=== PATIENT | male | born 2000 | race Caucasian/White ===

== ENCOUNTER 2023-07-03 09:07 | Outpatient (OUT) | payer OTHER, SELFPAY ==
[2023-07-03 09:26] LABS: Basophils Absolute Auto 0.1 10^3/uL (0.0-0.1); Basophils Percent Auto 1.1 % (0.2-2.0); Eosinophils Absolute Auto 0.1 10^3/uL (0.0-0.7); Eosinophils Percent Auto 2.1 % (0.9-7.0); Hematocrit 45.4 % (42.0-54.0); Hemoglobin 16.1 g/dL (14.0-18.0); Immature Granulocytes Abs Auto 0.01 10^3/uL (0.00-0.03); Immature Granulocytes Pct Auto 0.2 % (0.0-0.5); Lymphocytes Absolute Auto 1.7 10^3/uL (1.2-3.8); Mean Corpuscular HGB Conc 35.5 g/dL (29.9-35.2); Mean Corpuscular Hemoglobin 30.7 pg (25.9-34.0); Mean Corpuscular Volume 86.5 fL (80.0-94.0); Mean Platelet Volume 9.8 fL (9.5-13.5); Monocytes Absolute Auto 0.4 10^3/uL (0.3-0.8); Monocytes Percent Auto 9.6 % (1.7-12.0); Neutrophils Absolute Auto 2.2 10^3/uL (1.4-6.5); Platelet Count 273 10^3/uL (150-450); Red Blood Count 5.25 10^6/uL (4.70-6.10); Red Cell Distribution Width 12.5 % (11.0-15.0); White Blood Count 4.4 10^3/uL (4.0-11.0)
[2023-07-03 12:43] LABS: Estimated Average Glucose 301 mg/dL; Glycohemoglobin A1C 12.1 % (4.5-6.2)
[2023-07-03 13:46] LABS: Alanine Aminotransferase 42 U/L (16-63); Albumin Globulin Ratio 1.5; Albumin Level 4.4 g/dL (3.4-5.0); Alkaline Phosphatase 94 U/L (46-116); Anion Gap 13.6; Aspartate Amino Transferase 20 U/L (15-37); BUN Creatinine Ratio 14.1; Calcium 9.4 mg/dL (8.5-10.1); Carbon Dioxide 30.7 mmol/L (21.0-32.0); Chloride 96 mmol/L (98-107); Chol HDL Ratio 4.9; Cholesterol 259 mg/dL (<=200); Estimated GFR (African America >60 (>=60); Estimated GFR (Non-African Ame >60 (>=60); Free T3 2.11 pg/mL (2.18-3.98); Glucose 326 mg/dL (74-106); HDL Cholesterol 53 mg/dL (40-60); Potassium 4.3 mmol/L (3.5-5.1); Sodium 136 mmol/L (136-145); Total Protein 7.4 g/dL (6.4-8.2); Triglycerides 158 mg/dL (<=150); VLDL CHOLESTEROL 31.6 mg/dL
[2023-07-04 10:11] LABS: Insulin 1.3 uIU/mL (2.6-24.9)
== END 2023-07-03 09:08 | disposition home or self-care (01) ==
LOC: LAB 09:10
PROVIDERS: PCP Family Medicine; Visit Provider Family Medicine
DX: Z00.00 Encounter for general adult medical examination without abnormal findings (principal); R63.4 Abnormal weight loss
CPT/HCPCS: 36415; 80053; 80061; 83036; 83525; 84436; 84443; 84481; 85025

== ENCOUNTER 2023-08-16 08:47 | Outpatient (OUT) | payer OTHER, SELFPAY ==
[2023-08-16 09:53] LABS: Anion Gap 12.2; BUN Creatinine Ratio 21.2; Calcium 8.6 mg/dL (8.5-10.1); Carbon Dioxide 30.1 mmol/L (21.0-32.0); Chloride 105 mmol/L (98-107); Chol HDL Ratio 2.3; Cholesterol 171 mg/dL (<=200); Estimated GFR (African America >60 (>=60); Estimated GFR (Non-African Ame >60 (>=60); Glucose 190 mg/dL (74-106); HDL Cholesterol 73 mg/dL (40-60); Potassium 4.3 mmol/L (3.5-5.1); Sodium 143 mmol/L (136-145); Triglycerides 36 mg/dL (<=150); VLDL CHOLESTEROL 7.2 mg/dL
[2023-08-17 08:11] LABS: C-Peptide, Serum 1.5 ng/mL (1.1-4.4)
== END 2023-08-16 08:48 | disposition home or self-care (01) ==
LOC: LAB 08:48
PROVIDERS: PCP Family Medicine; Visit Provider Internal Medicine
DX: E10.65 Type 1 diabetes mellitus with hyperglycemia (principal); E55.9 Vitamin D deficiency, unspecified
CPT/HCPCS: 36415; 80061; 80069; 82043; 82306; 82570; 84681

== ENCOUNTER 2025-02-05 08:38 | Outpatient (OUT) | payer OTHER, SELFPAY ==
--- OUTSIDE RECORDS SUMMARY | 2025-02-04 13:29 | XMS_ITS | CCD ---
Author Organization [facility] Care Team Providers Care Coffee Blender Name Role Phone DR EDENILSON SHELLEY Attending Unavailable KARSTEN, DR PYLE Consulting Unavailable MISC, DR WARD Primary Care Unavailable KARSTEN, DR PYLE Admitting Unavailable KARSTEN, DR PYLE Attending Unavailable KARSTEN, DR PYLE Consulting Unavailable KARSTEN, DR PYLE Primary Care Unavailable KARSTEN, DR PYLE Admitting Unavailable KARSTEN, DR PYLE Consulting Unavailable KARSTEN, DR PYLE Primary Care Unavailable KARSTEN, DR PYLE Admitting Unavailable KARSTEN, DR PYLE Attending Unavailable Edenilson Shelley MD Primary Care Provider [phone] Edenilson Shelley MD Primary Care Provider [phone] BRITTNEY SONG Attending Unavailable JANICE KIRBY Attending Unavailable BRITTNEY SONG Attending Unavailable BRITTNEY SONG Referring Unavailable BRITTNEY SONG Attending Unavailable Allergies Allergy Classification Reported Allergen(s) Allergy Type Date of Onset Reaction(s) Facility Penicillins (antibiotic) (1 source) Amoxicillin Drug Allergy 3 [facility] Repository (9 sources) Amoxicillin Drug Allergy 4 [facility] (9 sources) Penicillins Propensity to adverse reactions 4 [facility] (2 sources) Amoxicillin-Pot Clavulanate Drug Allergy 5 GI intolerance [facility] Medications Current Medications Medication Drug Class(es) Dates Sig (Normalized) Sig (Original) Blood Glucose Monitoring Suppl (True Metrix Meter) w/Device kit (9 sources) Start: 07-04-2023 Blood Glucose Monitoring Suppl (True Metrix Meter) w/Device kit 07/04/2023 Active Start: 07-04-2023 Blood Glucose Monitoring Suppl (True Metrix Meter) w/Device kit USE DIRECTED to [facility] BLOOD SUGAR TWICE DAILY 07/04/2023 Active cetirizine hydrochloride 10 mg oral tablet (9 sources) Histamine-1 Receptor Antagonist take 1 tablet by mouth once daily cetirizine (ZyrTEC) 10 MG tablet Take 10 mg by mouth Daily Active citalopram 20 mg oral tablet (9 sources) Serotonin Reuptake Inhibitor take 1 tablet by mouth once daily citalopram (CeleXA) 20 MG tablet Take 20 mg by mouth Daily Active empagliflozin 10 mg oral tablet (13 sources) Sodium-Glucose Cotransporter 2 Inhibitor Start: 12-04-19 End: 01-22-20 take 1 tablet by mouth once daily empagliflozin (Jardiance) 10 MG Indications: Type 2 diabetes mellitus with hyperglycemia, with long-term current use of insulin (CMS/HCC) Take 1 tablet (10 mg) by mouth Daily 90 tablet 10/23/2024 01/21/2025 Active 24 hr guanFACINE 2 mg extended release oral tablet (9 sources) Central alpha-2 Adrenergic Agonist take 1 tablet by mouth once daily guanFACINE (Intuniv) 2 mg 24 hr tablet Take 2 mg by mouth Daily Active 3 ml insulin glargine 100 unt/ml pen injector (13 sources) Insulin Analog Start: 10-23-19 insulin glargine (Lantus SoloStar) 100 UNIT/ML pen Indications: Type 2 diabetes mellitus with hyperglycemia, with long-term current use of insulin (CMS/HCC) Inject 35 Units under the skin at bedtime 30 mL 1 10/23/2024 Active Start: 10-06-2024 End: 10-23-2024 Lantus SoloStar 100 UNIT/ML pen Indications: Type 2 diabetes mellitus with hyperglycemia, with long-term current use of insulin (CMS/HCC) INJECT 30 UNITS SUBCUTANEOUSLY AT BEDTIME 30 mL 1 10/06/2024 10/23/2024 Discontinued (Reorder) Start: 12-18-2023 End: 09-14-2024 insulin glargine (Lantus Veena oStar) 100 UNIT/ML pen Indications: Type 2 diabetes mellitus with hyperglycemia, with long-term current use of insulin (CMS/HCC) Inject 30 Units under the skin at bedtime 27 mL 06/16/2024 09/14/2024 Active 3 ml insulin lispro 100 unt/ml pen injector (9 sources) Insulin Analog Start: 07-29-2023 End: 01-07-2025 HumaLOG KWIKPEN 100 UNIT/ML injection Inject 6 Units under the skin in the morning and 6 Units at noon and 6 Units in the evening. Inject with meals. 07/29/2023 01/07/2025 Discontinued (Therapy completed) lisdexamfetamine dimesylate 70 mg oral capsule (9 sources) Central Nervous System Stimulant take 1 capsule by mouth in the morning lisdexamfetamine (Vyvanse) 70 MG capsule Take 70 mg by mouth in the morning. Active melatonin 3 mg / vitamin b6 2 mg oral tablet (9 sources) take 1 tablet by mouth once daily Melatonin 3-2 MG tablet Take 3 mg by mouth Daily Active metFORMIN hydrochloride 1000 mg oral tablet (16 sources) Biguanide Start: 11-05-2024 take 1 tablet by mouth twice daily at mealtime metFORMIN (Glucophage) 1000 MG tablet Indications: Type 2 diabetes mellitus with hyperglycemia (CMS/HCC) TAKE 1 TABLET BY MOUTH TWICE DAILY WITH MEALS 180 tablet 1 11/05/2024 Active Start: 12-04-2023 End: 01-21-2025 take 2 tablets by mouth in the morning metFORMIN (Glucophage) 500 MG tablet Indications: Type 2 diabetes mellitus with hyperglycemia, with long-term current use of insulin (CMS/HCC) Take 2 tablets (1,000 mg) by mouth in the morning and 2 tablets (1,000 mg) in the evening. Take with meals. 360 tablet 10/23/2024 01/21/2025 Active Start: 12-04-2023 take 1 tablet by brianna th in the morning metFORMIN (Glucophage) 500 MG tablet Take 500 mg by mouth in the morning and 500 mg in the evening. Take with meals. 12/04/2023 Active pantoprazole 40 mg delayed release oral tablet (9 sources) Proton Pump Inhibitor take 1 tablet by mouth before mealtime pantoprazole (ProtoNix) 40 MG EC tablet Take 40 mg by mouth in the morning. Take before meals. Do not crush, chew, or split. Active Problems Active Problems Problem Classification Problem Date Documented Date Episodic/Chronic Administrative/social admission (4 sources) Patient encounter status; Translations: [Dietary counseling and surveillance] 06-16-2024 Episodic Diabetes mellitus with complications (4 sources) Hyperglycemia due to type 2 diabetes mellitus; Translations: [Type 2 diabetes mellitus with hyperglycemia] 06-16-2024 Chronic Mood disorders (2 sources) Major depression, single episode; Translations: [Major depressive disorder, single episode, unspecified] Onset: 01-07-2025 01-07-2025 Chronic Nutritional deficiencies (4 sources) Vitamin D deficiency; Translations: [Vitamin D deficiency, unspecified] 06-16-2024 Chronic Other nutritional; endocrine; and metabolic disorders (4 sources) Weight increased; Translations: [Abnormal weight gain] 06-16-2024 Episodic Otitis media and related conditions (11 sources) Perforation of right tympanic membrane; Translations: [Unspecified perforation of tympanic membrane, right ear] Onset: 12-31-2023 12-31-2023 Episodic Unclassified (2 sources) CONTACT W/AND (SUSP) EXPOS COVID-19; Translations: [CONTACT W/AND (SUSP) EXPOS COVID-19] Onset: 10-14-2020 Viral infection (1 source) COVID-19; Translations: [COVID-19] Onset: 10-14-2020 Past or Other Problems Problem Classification Problem Date Documented Da te Episodic/Chronic Immunizations and screening for infectious disease (4 sources) Contact with and (suspected) exposure to other viral communicable diseases; Translations: [CONTCT EXPS OTH VIRL COMMUNICABL DZ] Onset: 07-14-2020 Episodic Other ear and sense organ disorders (9 sources) Impacted cerumen in right ear; Translations: [Impacted cerumen, right ear] Onset: 12-31-2023 12-31-2023 Episodic Other upper respiratory infections (1 source) Acute recurrent frontal sinusitis; Translations: [ACUTE RECURRENT FRONTAL SINUSITIS] Onset: 07-19-2020 Episodic Unclassified (1 source) CONTACT W/AND (SUSP) EXPOS COVID-19; Translations: [CONTACT W/AND (SUSP) EXPOS COVID-19] Onset: 10-12-2020 Results Test Name Value Interpretation Reference Range Facil ity Glucose (Bld) [Mass/Vol]on 0 10-23-2024 Glucose Blood, POC 147 mg/dL [facility] and Cell countson 10-23-2024 HbA1c (Bld) [Mass fraction] 8.1 % [facility] No Panel Informationon 10-23 Interpretation and review of laboratory results Abnormal [facility] Glucose (Bld) [Mass/Vol]Orde red By: Destiny Glory on 06-16-2024 Glucose Blood, POC 145 mg/dL [facility] HbA1c (Bld) [Mass fraction]O rdered By: Yoana Patterson on 06-16-2024 Interpretation and review of laboratory results Normal [facility] Laboratory - Hematology and Cell countsOrdered By: Yoana Patterson on 06-16-2024 HbA1c (Bld) [Mass fraction] 7.9 % [facility] Covid-19 PCR (CVDTBH)on EUA Statement SEE BELOW Normal [facility] Comment on above: Result Comment: This test is not yet approved or cleared by the [place] FDA. When there are no FDA-approved or cleared tests available, and other criteria are met, FDA can make tests available under an emergency access mechanism called an Emergency Use Authorization (EUA). The EUA for this test is supported by the [place] Health and Human Service?s (HHS?s) declaration that circumstances exist to justify the emergency use of in vitro diagnostics for the detection and/or diagnosis of the virus that causes COVID-19. This EUA will remain in effect (meaning this test can be used) for the duration of the COVID-19 declaration justifying emergency of IVDs, unless it is terminated or revoked by FDA (after which the test may no longer be used). When diagnostic testing is negative, the possibility of a false negative should be considered in the context of a patients recent exposures and the presence of clinical signs and symptoms consistent with SARS-CoV-2. Performed By: #### [facility] #### [facility] [address] [address] Chadrivka Jackson SARS-CoV-2 (COVID-19) RNA GENEVIEVE+probe Ql (Unsp spec) Detected Abnormal NOT DETECTED [facility] Comment on above: Result Comment: This test is not yet approved or cleared by the [place] FDA. When there are no FDA-approved or cleared tests available, and other criteria are met, FDA can make tests available under an emergency access mechanism called an Emergency Use Authorization (EUA). The EUA for this test is supported by the [place] Health and Human Service's (HHS's) declaration that circumstances exist to justify the emergency use of in vitro diagnostics for the detection and/or diagnosis of the virus that causes COVID-19. This EUA will remain in effect (meaning this test can be used) for the duration of the COVID-19 declaration justifying emergency of IVDs, unless it is terminated or revoked by FDA (after which the test may no longer be used). Performed By: #### C VDTBH #### [facility] [address] [place] [address] Chad Jackson COVID-19 PCRon 07-16-2020 SARS-CoV-2 (COVID-19) RNA GENEVIEVE+probe Ql (Unsp spec) Not detected Normal Not Detected [facility] Comment on above: Result Comment: This nucleic acid amplification test was developed and its performance characteristics determined by [employer] Nucleic acid amplification tests include PCR and TMA. This test has not been FDA cleared or approved. This test has been authorized by FDA under an Emergency Use Authorization (EUA). This test is only authorized for the duration of time the declaration that circumstances exist justifying the authorization of the emergency use of in vitro diagnostic tests for detection of SARS-CoV-2 virus and/or diagnosis of COVID-19 infection under section 564(b)(1) of the Act, 21 U.S.C. 360bbb-3(b) (1), unless the authorization is terminated or revoked sooner. When diagnostic testing is negative, the possibility of a false negative result should be considered in the context of a patient's recent exposures and the presence of clinical signs and symptoms consistent with COVID-19. An individual without symptoms of COVID-19 and who is not shedding SARS-CoV-2 virus would expect to have a negative (not detected) result in this assay. Performed By: #### C VDPCR #### [facility] [address] [place] [address] Chad Jackson COVID-19 PCRon 06-02-2020 SARS-CoV-2 (COVID-19) RNA GENEVIEVE+probe Ql (Unsp spec) Not detected Normal Not Detected [facility] Comment on above: Result Comment: This nucleic acid amplification test was developed and its performance characteristics determined by [employer] Nucleic acid amplification tests include PCR and TMA. This test has not been FDA cleared or approved. This test has been authorized by FDA under an Emergency Use Authorization (EUA). This test is only authorized for the duration of time the declaration that circumstances exist justifying the authorization of the emergency use of in vitro diagnostic tests for detection of SARS-CoV-2 virus and/or diagnosis of COVID-19 infection under section 564(b)(1) of the Act, 21 U.S.C. 360bbb-3(b) (1), unless the authorization is terminated or revoked sooner. When diagnostic testing is negative, the possibility of a false negative result should be considered in the context of a patient's recent exposures and the presence of clinical signs and symptoms consistent with COVID-19. An individual without symptoms of COVID-19 and who is not shedding SARS-CoV-2 virus would expect to have a negative (not detected) result in this assay. Performed By: #### C VDPCR #### [facility] [address] [place] [address] Vital Signs Date Time Vital Sign Value Performing Clinician Faci lity 01-07-2025 10:230400 Body height 176.5 cm Janice Kirby MD Work Phone: [facility] 01-07-2025 10:23-0400 Body mass index (BMI) [Ratio] 24.02 kg/m2 Janice Kirby MD Work Phone: [facility] 01-07-2025 10:23-0400 Body weight 74.84 kg Janice Kirby MD Work Phone: [facility] 01-07-2025 10:23-0400 Diastolic blood pressure 77 mm[Hg] Janice Kirby MD Work Phone: [facility] 01-07-2025 10:23-0400 Heart rate 121 /min Janice Kirby MD Work Phone: [facility] 01-07-2025 10:23-0400 Systolic blood pressure 129 mm[Hg] Janice Kirby MD Work Phone: [facility] 10-23-2024 09:57-0500 Body height 177.8 cm Brittney Song MD Work Phone: [facility] 10-23-2024 09:57-0500 Body mass index (BMI) [Ratio] 24.25 kg/m2 Brittney Song MD Work Phone: [facility] 10-23-2024 09:57-0500 Body weight 76.66 kg Brittney Song MD Work Phone: [facility] 10-23-2024 09:57-0500 Diastolic blood pressure 70 mm[Hg] Brittney Song MD Work Phone: [facility] 10-23-2024 09:57-0500 Heart rate 105 /min Brittney Song MD Work Phone: [facility] 10-23-2024 09:57-0500 Respiratory rate 16 /min Brittney Song MD Work Phone: [facility] 10-23-2024 09:57-0500 SaO2% (BldA) [Mass fraction] 96 % Brittney Song MD Work Phone: [facility] 10-23-2024 09:57-0500 Systolic blood pressure 110 mm[Hg] Brittney Song MD Work Phone: [facility] 06-16-2024 10:13-0400 Body height 176.5 cm Brittney Song MD Work Phone: [facility] 06-16-2024 10:13-0400 Diastolic blood pressure 74 mm[Hg] Brittney Song MD Work Phone: [facility] 06-16-2024 10:13-0400 Heart rate 98 /min Brittney Song MD Work Phone: [facility] 06-16-2024 10:13-0400 Respiratory rate 18 /min Brittney Song MD Work Phone: [facility] 06-16-2024 10:13-0400 Systolic blood pressure 120 mm[Hg] Brittney Song MD Work Phone: [facility] Encounters Encounter Date Encounter Type Care Provider Facility Start: 01-23-2025 End: 01-23-2025 ambulatory BRITTNEY SONG Not Available Start: 01-07-2025 End: 01-07-2025 Bamshiva Kirby MD Work Phone: [facility] Start: 01-07-2025 End: 01-07-2025 Bamboo flowsalex Kirby MD Work Phone: [facility] Start: 01-07-2025 End: 01-07-2025 ambulatory JANICE KIRBY Not Available Start: 01-07-2025 End: 01-07-2025 Office outpatient visit 15 minutes Janice Kirby MD Work Phone: [facility] Comment on above: Perforation of right tympanic membrane (Primary Dx) Start: 10-23-2024 End: 10-23-2024 Bamboo niranjan Song MD Work Phone: [facility] Start: 10-23-2024 End: 10-23-2024 Bamshiva Song MD Work Phone: [facility] Start: 10-23-2024 End: 10-23-2024 Office outpatient visit 25 minutes Brittney Song MD Work Phone: [facility] Comment on above: Type 2 diabetes aron itus with hyperglycemia, with long-term current use of insulin ([facility]) (Primary Dx); Weight gain; Vitamin D deficiency; Encounter for dietary consultation Start: 10-23-2024 End: 10-23-2024 ambulatory BRITTNEY SONG Not Available Start: 06-16-2024 End: 06-16-2024 Rlboankit Song MD Work Phone: [facility] Start: 06-16-2024 End: 06-16-2024 Bamboo flowsheet Brittney Song MD Work Phone: [facility] Start: 06-16-2024 End: 06-16-2024 Office outpatient visit 25 minutes Brittney Song MD Work Phone: [facility] Comment on above: Type 2 diabetes aron itus with hyperglycemia, with long-term current use of insulin ([facility]) (Primary Dx); Weight gain; Vitamin D deficiency; Encounter for dietary consultation Start: 06-16-2024 End: 06-16-2024 ambulatory BRITTNEY SONG Not Available Start: 10-12-2020 End: 10-12-[address] EDENILSON SHELLEY Facility:[facility] Start: 07-14-2020 End: 07-15-[address] EDENILSON SHELLEY Facility:[facility] Start: 06-01-2020 End: 06-02-[address] EDENILSON SHELLEY Facility:[facility] Procedures Date Procedure Procedure Detail Performing Clinician Start: 10-23-2024 Gluc bld gluc mntr d ev cleared fda spec home use Brittney Song MD Work Phone: Start: 06-16-2024 End: 06-16-2024 Gluc bld gluc mntr dev cleared fda spec home use Brittney Song MD Work Phone: Plan of Treatment Date Care Activity Detail Author Start: 01-06-2026 End: 01-06-2026 Patient encounter procedure 01/06/2026 10:20 AM EDT Office Visit [facility] [address] [facility] [address] [place] [id number] Janice Kirby MD [address] [facility] [address] [place] [address] [facility] Start: 01-23-2025 End: 01-23-2025 Patient encounter procedure 01/23/2025 10:10 AM EDT Office Visit [facility] [address] [place] [phone] Brittney Song MD [address] [place] [address] [facility] Start: 01-07-2025 End: 01-07-2025 Patient encounter procedure 01/07/2025 10:20 AM EDT Office Visit [facility] [address] [place] [address] [place] [address] Janice Kirby MD [address] [place] [address] [place] [address] [facility] Start: 10-23-2024 End: 10-23-2024 Patient encounter procedure 10/23/2024 9:50 AM EST Office Visit [facility] [address] [place] [address] Brittney Song MD [address] [place] [address] Arrived [facility] Comment on above: Arrived Start: 10-20-2024 End: 10-20-2024 Patient encounter procedure 10/20/2024 10:00 AM EST Office Visit [facility] [address] [place] [address] Brittney Song MD [address] [place] [address] [facility] Start: 06-16-2024 End: 06-16-2024 Patient encounter procedure 06/16/2024 10:50 AM EDT Office Visit [facility] [address] [place] [address] Brittney Song MD [address] [place] [address] Type 2 diabetes mellitus with hyperglycemia, with long-term current use of insulin ([facility]) [facility] Comment on above: Type 2 diabetes aron itus with hyperglycemia, with long-term current use of insulin ([facility]) Payers Date Payer Category Payer Medicaid (Managed Care) [employer] [id number] 2002 Unknown [id number] 2002 Unknown [id number] 2002 Unknown [id number] 2002 Unknown [id number] 1259 2002 Unknown [id number] 1259 2002 Unknown [id number] 1259 2002 Unknown [id number] [id number] 1959 Unknown [id number] Social History Date Type Detail Facility Start: 12-26-2023 Tobacco smoking stat [facility] Never smoked tobacco [facility] Start: 12-26-2023 Tobacco use and exposure Smokeless tobacco non-user [facility] Start: 06-05-2024 End: 01-07-2025 Alcoholic beverage intake Lifetime non-drinker (finding) [facility] Start: 12-31-2023 End: 01-07-2025 History of Social function [facility] Start: 12-31-2023 End: 01-07-2025 Tobacco use panel [facility] Start: 2002 Sex assigned at Not on file [facility] NEGATED: Highlighted rowStart: NINF History of tobacco use Passive smoker [facility] History of Present illness Narrative 01-07-2025 Janice Kirby MD - 01/07/2025 10:20 AM EDT Note Date & Type Note Facility 01-07-2025 History of Presen t illness Narrative Subjective Patient ID: Santana Schulte is a 24 y.o. male who presents for Cerumen Impaction (1 year check ears) No ear problems since last seen Family History Problem Relation Name Age of Onset Diabetes Mother Hypertension Mother [place] disease Maternal Grandmother No Known Problems Paternal Grandmother No Known Problems Paternal Grandfather Active Ambulatory Problems Diagnosis Date Noted Right ear impacted cerumen 12/31/2023 Perforation of right tympanic membrane 12/31/2023 Major depressive disorder, single episode, unspecified ([facility]) 01/07/2025 Resolved Ambulatory Problems Diagnosis Date Noted No Resolved Ambulatory Problems Past Medical History: Diagnosis Date ADHD (attention deficit hyperactivity disorder) ([facility]) Anxiety Asthma Diabetes 1.5, managed as type 2 (HCC) ([facility]) IBS (irritable bowel syndrome) watermelon inspector (current) use of insulin ([facility]) Panic attack ([facility]) PTSD (post-traumatic stress disorder) ([facility]) Tympanic membrane perforation, right Vitamin D deficiency, unspecified Past Surgical History: Procedure Laterality Date ADENOIDECTOMY OTHER SURGICAL HISTORY BMT Dr. Balderrama 10/2007 TONSILLECTOMY TYMPANOSTOMY TUBE PLACEMENT BMT x 3 Dr. Crain Allergies Allergen Reactions Amoxicillin Amoxicillin-Pot Clavulanate GI intolerance Penicillins Current Outpatient Medications on File Prior to Visit Medication Sig Dispense Refill Blood Glucose Monitoring Suppl (True Metrix Meter) w/Device kit cetirizine (ZyrTEC) 10 MG tablet Take 10 mg by mouth Daily citalopram (CeleXA) 20 MG tablet Take 20 mg by mouth Daily empagliflozin (Jardiance) 10 MG Take 1 tablet (10 mg) by mouth Daily 90 tablet 0 guanFACINE (Intuniv) 2 mg 24 hr tablet Take 2 mg by mouth Daily insulin glargine (Lantus SoloStar) 100 UNIT/ML pen Inject 35 Units under the skin at bedtime 30 mL 1 lisdexamfetamine (Vyvanse) 70 MG capsule Take 70 mg by mouth in the morning. Melatonin 3-2 MG tablet Take 3 mg by mouth Daily metFORMIN (Glucophage) 1000 MG tablet TAKE 1 TABLET BY MOUTH TWICE DAILY WITH MEALS 180 tablet 1 metFORMIN (Glucophage) 500 MG tablet Take 2 tablets (1,000 mg) by mouth in the morning and 2 tablets (1,000 mg) in the evening. Take with meals. 360 tablet 0 pantoprazole (ProtoNix) 40 MG EC tablet Take 40 mg by mouth in the morning. Take before meals. Do not crush, chew, or split. [DISCONTINUED] HumaLOG KWIKPEN 100 UNIT/ML injection Inject 6 Units under the skin in the morning and 6 Units at noon and 6 Units in the evening. Inject with meals. No current facility-administered medications on file prior to visit. Objective Last Recorded Vitals Vitals: 01/07/25 1023 BP: 129/77 Pulse: (!) 121 ENT Physical Exam Ear Ear Canals: right ear canal normal; left ear canal normal; Tympanic Membranes: left tympanic membrane normal; Ear comments: Punctate clean/dry RT ant/sup perf Assessment/Plan Diagnoses and all orders for this visit: Perforation of right tympanic membrane Stable asymptomatic TM perf. No tx needed documented in this encounter [facility] History of Present illness Narrative 10-23-2024 Brittney Song MD - 10/23/2024 9:50 AM EST Note Date & Type Note Facility 10-23-2024 History of Presen t illness Narrative Images from the original note were not included. Santana Schulte is a 24 y.o. male No ref. provider found presents with chief complaint of Diabetes HPI: Interim history: 10/2024 Followup visit 10/23/2024. Blood sugar in the office 146, A1c 8.1, He is currently on Lantus 30, Metformin 500 twice a day, jardiance 10 mg daily. Interim history: 06/2024 Followup visit 06/16/2024. Blood sugar in the office 145, a1c 7.9, He is currently on Lantus 30, Metformin 500 twice a day, jardiance 10 mg daily. Interim history: 02/2024 Followup visit 02/18/2024. Blood sugar in the office 305, a1c 7.3, He is currently on Lantus 30, Metformin 500 twice a day, jardiance 10 mg daily. Interim history: 11/2023 Followup visit 11/05/2023. Blood sugar in the office 111 He is currently on Lantus 30, Metformin 500 twice a day, jardiance 10 mg daily Interim history: 08/2023. Followup visit 08/23/2023. Blood sugar in the office 249. Labs done. C-peptide 1.5 (1.1-4.9). More type 2 diabetes. Vitamin D 26. Total cholesterol 171, triglycerides 36. LDL 91. He is currently on Lantus 20 and Humalog 6, 8, 10 plus scale #2, on average he takes 60 units daily. Metformin 500 twice a day. HPI: 07/2023 New patient came by himself, by his mom and grandma; they are both my patient. Came and found his diabetes yesterday with A1c 12.1. He almost lost 30 pounds over the last couple months, from 187 to 153 pounds. He is not on any medication for diabetes yet, and he has polyuria, polydipsia, not feeling well. Lab done: Total cholesterol 259, triglycerides 158, HDL 53, LDL 175, TSH normal 2.7, T4 normal 8.4, free T3 mildly low due to his sickness, and insulin low 1.3 (2-24), suggestive of type 1. Blood sugar in our office 532, so we give him Humalog 20 units in the office and I give him sample of Humalog and Levemir to start 20 units at bedtime. SUBJECTIVE: MEDICATIONS: Current Outpatient Medications Medication Instructions Blood Glucose Monitoring Suppl (True Metrix Meter) w/Device kit USE DIRECTED to [facility] BLOOD SUGAR TWICE DAILY cetirizine (ZYRTEC) 10 mg, Daily citalopram (CELEXA) 20 mg, Daily empagliflozin (JARDIANCE) 10 mg, Oral, Daily guanFACINE (INTUNIV) 2 mg, Daily HumaLOG KWIKPEN 6 Units, 3 times daily with meals Lantus SoloStar 35 Units, Subcutaneous, Nightly lisdexamfetamine (VYVANSE) 70 mg, Every morning Melatonin 3-2 MG tablet 3 mg, Daily metFORMIN (GLUCOPHAGE) 1,000 mg, Oral, 2 times daily with meals pantoprazole (PROTONIX) 40 mg, Daily before breakfast ALLERGIES: Allergies Allergen Reactions Amoxicillin Penicillins Past Medical History: Diagnosis Date ADHD (attention deficit hyperactivity disorder) ([facility]/HCC) Anxiety Asthma ([facility]/HCC) Diabetes 1.5, managed as type 2 (HCC) ([facility]) IBS (irritable bowel syndrome) assisted (current) use of insulin ([facility]/HCC) Panic attack ([facility]/HCC) PTSD (post-traumatic stress disorder) ([facility]) Tympanic membrane perforation, right Vitamin D deficiency, unspecified Past Surgical History: Procedure Laterality Date ADENOIDECTOMY OTHER SURGICAL HISTORY BMT Dr. Balderrama 10/2007 TONSILLECTOMY TYMPANOSTOMY TUBE PLACEMENT BMT x 3 Dr[address] Crain REVIEW OF SYMPTOMS: 14 POINT OF SYSTEM REVIEWED AND NEGATIVE OBJECTIVE: Constitutional: Afebrile @ home; no weakness or night sweats SKIN: No change in skin color; no itching, rash or lesions; no hair loss; HEENT: No HAs or injury; no dizziness; No difficulty with vision; no eye pain, discharge or lesions; no hearing loss or difficulty; no nasal discharge, NECK: No pain, limitation of motion, lumps or swollen glands RESP: No cough, wheezing or difficulty breathing. No CP with breathing; CARDIO: No CP , SOB or fatigue, No edema, palpitations or dyspnea with exertion GI: No N/V/D or abd. pain; good appetite with no recent change. No heart burn, liver or gallbladder disease; no rectal bleeding or pain : No urinary pain , frequency or odor. MUSCULOSKELETAL: No muscle pain or cramps; no extremity weakness.No joint pain, stiffness, swelling or limitation of movement NEUROLOGY: No H/O seizures, stroke or fainting. No weakness, tremors. Hematology: No bleeding problems or excessive bruising ENDOCRINE: No increase in hunger, thirst or urination; admits compliance to medical management plan Feet: numbness tingling yes , ulcers or skin break no Lab Results Component Value Date HGBA1C 8.1 10/23/2024 HGBA1C 7.9 06/16/2024 Lab Results Component Value Date GLU 147 10/23/2024 GLU 145 06/16/2024 02/11/2020 12:00 PM 08/18/2020 12:00 PM 02/16/2021 12:00 PM 12/31/2023 1:18 PM 02/18/2024 9:46 AM 06/16/2024 10:13 AM 10/23/2024 9:57 AM Vitals BMI 25.99 kg/m2 27.02 kg/m2 27.02 kg/m2 25.55 kg/m2 25.18 kg/m2 25.18 kg/m2 24.25 kg/m2 BSA (m2) 1.97 m2 2.01 m2 2.01 m2 1.95 m2 1.96 m2 1.96 m2 1.95 m2 Systolic 121 129 146 134 110 120 110 Diastolic 83 87 93 83 60 74 70 Heart Rate 112 98 105 SpO2 97 % 96 % Resp 18 18 16 Height (in) 5' 9 5' 9 5' 9 5' 9 5' 9.5 5' 9.5 5' 10 Weight (lb) 176 183 183 173 173 169 Visit Report Report Report Report ASSESSMENT AND PLAN: Assessment/Plan Diagnoses and all orders for this visit: Type 2 diabetes mellitus with hyperglycemia, with long-term current use of insulin ([facility]) - POCT glycosylated hemoglobin (Hb A1C) docked device - POCT glucose manually resulted - insulin glargine (Lantus SoloStar) 100 UNIT/ML pen; Inject 35 Units under the skin at bedtime - metFORMIN (Glucophage) 500 MG tablet; Take 2 tablets (1,000 mg) by mouth in the morning and 2 tablets (1,000 mg) in the evening. Take with meals. - empagliflozin (Jardiance) 10 MG; Take 1 tablet (10 mg) by mouth Daily We will continue with Lantus 30 units, metformin 1000 twice a day, Jardiance 10 mg. Weight gain Vitamin D deficiency Encounter for dietary consultation Diet and exercise reviewed with the patient Follow up in about 3 months (around 01/20/2025). documented in this encounter [facility] History of Present illness Narrative 06-03-2024 Brittney Song MD - 06/16/2024 10:50 AM EDT Note Date & Type Note Facility 06-03-2024 History of Presen t illness Narrative Santana Schulte is a 24 y.o. male Brittney Song MD presents with chief complaint of Diabetes and Follow-up HPI: Interim history: 06/2024 Followup visit 06/16/2024. Blood sugar in the office 145, a1c 7.9, He is currently on Lantus 30, Metformin 500 twice a day, jardiance 10 mg daily. Interim history: 02/2024 Followup visit 02/18/2024. Blood sugar in the office 305, a1c 7.3, He is currently on Lantus 30, Metformin 500 twice a day, jardiance 10 mg daily. Interim history: 11/2023 Followup visit 11/05/2023. Blood sugar in the office 111 He is currently on Lantus 30, Metformin 500 twice a day, jardiance 10 mg daily Interim history: 08/2023. Followup visit 08/23/2023. Blood sugar in the office 249. Labs done. C-peptide 1.5 (1.1-4.9). More type 2 diabetes. Vitamin D 26. Total cholesterol 171, triglycerides 36. LDL 91. He is currently on Lantus 20 and Humalog 6, 8, 10 plus scale #2, on average he takes 60 units daily. Metformin 500 twice a day. HPI: 07/2023 New patient came by himself, by his mom and grandma; they are both my patient. Came and found his diabetes yesterday with A1c 12.1. He almost lost 30 pounds over the last couple months, from 187 to 153 pounds. He is not on any medication for diabetes yet, and he has polyuria, polydipsia, not feeling well. Lab done: Total cholesterol 259, triglycerides 158, HDL 53, LDL 175, TSH normal 2.7, T4 normal 8.4, free T3 mildly low due to his sickness, and insulin low 1.3 (2-24), suggestive of type 1. Blood sugar in our office 532, so we give him Humalog 20 units in the office and I give him sample of Humalog and Levemir to start 20 units at bedtime. SUBJECTIVE: MEDICATIONS: Current Outpatient Medications Medication Instructions Blood Glucose Monitoring Suppl (True Metrix Meter) w/Device kit USE DIRECTED to [facility] BLOOD SUGAR TWICE DAILY cetirizine (ZYRTEC) 10 mg, Daily citalopram (CELEXA) 20 mg, Daily empagliflozin (JARDIANCE) 10 mg, Oral, Daily guanFACINE (INTUNIV) 2 mg, Daily HumaLOG KWIKPEN 6 Units, 3 times daily with meals Lantus SoloStar 30 Units, Subcutaneous, Nightly lisdexamfetamine (VYVANSE) 70 mg, Every morning Melatonin 3-2 MG tablet 3 mg, Daily metFORMIN (GLUCOPHAGE) 1,000 mg, Oral, 2 times daily with meals pantoprazole (PROTONIX) 40 mg, Daily before breakfast ALLERGIES: Allergies Allergen Reactions Amoxicillin Penicillins Past Medical History: Diagnosis Date ADHD (attention deficit hyperactivity disorder) ([facility]) Anxiety Asthma ([facility]) Diabetes 1.5, managed as type 2 ([facility]) ([facility]) IBS (irritable bowel syndrome) assisted (current) use of insulin ([facility]) Panic attack ([facility]) PTSD (post-traumatic stress disorder) ([facility]) Tympanic membrane perforation, right Vitamin D deficiency, unspecified Past Surgical History: Procedure Laterality Date ADENOIDECTOMY OTHER SURGICAL HISTORY BMT Dr. Balderrama 10/2007 TONSILLECTOMY TYMPANOSTOMY TUBE PLACEMENT BMT x 3 [address] Crain REVIEW OF SYMPTOMS: 14 POINT OF SYSTEM REVIEWED AND NEGATIVE OBJECTIVE: Constitutional: Afebrile @ home; no weakness or night sweats SKIN: No change in skin color; no itching, rash or lesions; no hair loss; HEENT: No HAs or injury; no dizziness; No difficulty with vision; no eye pain, discharge or lesions; no hearing loss or difficulty; no nasal discharge, NECK: No pain, limitation of motion, lumps or swollen glands RESP: No cough, wheezing or difficulty breathing. No CP with breathing; CARDIO: No CP , SOB or fatigue, No edema, palpitations or dyspnea with exertion GI: No N/V/D or abd. pain; good appetite with no recent change. No heart burn, liver or gallbladder disease; no rectal bleeding or pain : No urinary pain , frequency or odor. MUSCULOSKELETAL: No muscle pain or cramps; no extremity weakness.No joint pain, stiffness, swelling or limitation of movement NEUROLOGY: No H/O seizures, stroke or fainting. No weakness, tremors. Hematology: No bleeding problems or excessive bruising ENDOCRINE: No increase in hunger, thirst or urination; admits compliance to medical management plan Feet: numbness tingling , ulcers or skin break Lab Results Component Value Date HGBA1C 7.9 06/16/2024 Lab Results Component Value Date GLU 145 06/16/2024 Visit Vitals BP 120/74 Pulse 98 Resp 18 Ht 5' 9.5 BMI 25.18 kg/m Smoking Status Never BSA 1.96 m ASSESSMENT AND PLAN: Assessment/Plan Diagnoses and all orders for this visit: Type 2 diabetes mellitus with hyperglycemia, with long-term current use of insulin ([facility]) - POCT glucose manually resulted - POCT glycosylated hemoglobin (Hb A1C) docked device We will continue with Lantus 30 units, metformin 1000 twice a day, Jardiance 10 mg Weight gain Vitamin D deficiency Encounter for dietary consultation Diet and exercise reviewed with the patient Follow up in about 4 months (around 10/17/2024). documented in this encounter [facility] Evaluation note Note Date & Type Note Facility Evaluation note Diagnosis Type 2 diabetes mellitus with hyperglycemia, with long-term current use of insulin ([facility])- Primary Weight gain Other symptoms concerning nutrition, metabolism, and development Vitamin D deficiency Encounter for dietary consultation documented in this encounter [facility] Evaluation note Note Date & Type Note Facility Evaluation note Diagnosis Type 2 diabetes mellitus with hyperglycemia, with long-term current use of insulin ([facility])- Primary Weight gain Other symptoms concerning nutrition, metabolism, and development Vitamin D deficiency Encounter for dietary consultation documented in this encounter [facility] Evaluation note Note Date & Type Note Facility Evaluation note Diagnosis Perforation of right tympanic membrane- Primary documented in this encounter [facility] Summary Purpose Family History No Family History Records FoundNo Family History Records Found Advance Directives No Advanced Directives Records FoundNo Advanced Directives Records Found Additional Source Comments (unrecognized sect ion and content) No Status Records FoundNo Status Records Found INFORMATION SOURCE (unrecogn ized section and content) DATE CREATED AUTHOR 03/22/2021 [facility] DATE CREATED AUTHOR AUTHOR'S ORGANIZ ATION 01/29/2025 [facility] EPIC Reason for Visit (unrecogniz ed section and content) Reason Comments Diabetes Follow-up Reason Comments Diabetes Reason Comments Cerumen Impaction 1 year check ears Care Teams (unrecognized sec tion and content) Coffee Blender Relationship Specialty Start Date End Date Edenilson Shelley MD [address] [facility] [place] [address] PCP - General Family Medicine 12/31/23 Coffee Blender Relationship Specialty Start Date End Date Edenilson Shelley MD [address] [facility] [place] [address] PCP - General Family Medicine 12/31/23 Coffee Blender Relationship Specialty Start Date End Date Edenilson Shelley MD [address] [facility] [place] [address] PCP - General Family Medicine 12/31/23 Coffee Blender Relationship Specialty Start Date End Date Edenilson Shelley MD [address] [facility] [place] [address] PCP - General Family Medicine 12/31/23 Coffee Blender Relationship Specialty Start Date End Date Edenilson Shelley MD [address] [facility] [place] [address] PCP - General Family Medicine 01/07/25 Coffee Blender Relationship Specialty Start Date End Date Edenilson Shelley MD [address] [facility] [place] [phone] PCP - General Family Medicine 01/07/25 FOR RECORDS PERTAINING TO PATIENTS WHO ARE OR HAVE BEEN ENROLLED IN A CHEMICAL DEPENDENCY/SUBSTANCEABUSE PROGRAM, SOME INFORMATION MAY BE OMITTED. This clinical summary was aggregated from multiple sources. Caution should be exercised in using it in the provision of clinical care. This summary normalizes information from multiple sources, and as a consequence, information in this document may materially change the coding, format and clinical context of patient data. In addition, data may be omitted in some cases. CLINICAL DECISIONS SHOULD BE BASED ON THE PRIMARY CLINICAL RECORDS. [facility] [employer] [facility]. provides no warranty or guarantee of the accuracy or completeness of information in this document.
--- OUTSIDE RECORDS SUMMARY | 2025-02-05 08:53 | XMS_ITS | CCD ---
Author Organization [facility] Care Team Providers Care Wireless Store Manager Name Role Phone DR EDENILSON SHELLEY Attending [...] Unavailable Edenilson Shelley MD Primary Care Provider [phone] Edenilson Shelley MD Primary Care Provider [phone] BRITTNEY SONG Attending Unavailable JANICE KIRBY Attending Unavailable BRITTNEY SONG Attending Unavailable BRITTNEY SONG Referring Unavailable BRITTNEY SONG Attending Unavailable Allergies Allergy Classification Reported Allergen(s) Allergy Type Date of Onset Reaction(s) Facility Penicillins (antibiotic) (1 source) Amoxicillin Drug Allergy 3 [facility] (9 sources) Amoxicillin Drug Allergy 4 [facility] (9 sources) Penicillins Propensity to adverse reactions 4 [facility] (2 sources) Amoxicillin-Pot Clavulanate Drug Allergy 5 GI intolerance [facility] Medications Current Medications Medication Drug Class(es) Dates Sig (Normalized) Sig (Original) Blood Glucose Monitoring Suppl (True Metrix Meter) w/Device kit (9 sources) Start: 07-04-2023 Blood Glucose Monitoring Suppl (True Metrix Meter) w/Device kit 07/04/2023 Active Start: 07-04-2023 Blood Glucose Monitoring Suppl (True Metrix Meter) w/Device kit USE DIRECTED to [facility] BLOOD SUGAR TWICE DAILY 07/04/2023 Active cetirizine [...] 0 10-23-2024 Glucose Blood, POC 147 mg/dL [facility] - Hematology and Cell countson 10-23-2024 HbA1c (Bld) [Mass fraction] 8.1 % [facility] No Panel Informationon 10-23 Interpretation and review of laboratory results Abnormal [facility] Glucose (Bld) [Mass/Vol]Orde red By: Destiny Glory on 06-16-2024 Glucose Blood, POC 145 mg/dL [facility] HbA1c (Bld) [Mass fraction]O rdered By: Yoana Patterson on 06-16-2024 Interpretation and review of laboratory results Normal [facility] Laboratory - Hematology and Cell countsOrdered By: Yoana Patterson on 06-16-2024 HbA1c (Bld) [Mass fraction] 7.9 % [facility] Covid-19 PCR (CVDTBH)on EUA Statement SEE BELOW Normal [facility] Comment on above: Result Comment: This test is not yet approved or cleared by the [place] FDA. When there are no FDA-approved or cleared tests available, and other criteria are met, FDA can make tests available under an emergency access mechanism called an Emergency Use Authorization (EUA). The EUA for this test is supported by the [place] of Health and Human Service?s (HHS?s) declaration [...] consistent with SARS-CoV-2. Performed By: #### [facility] #### [facility] [address] [address] Chadrivka Jackson SARS-CoV-2 (COVID-19) RNA GENEVIEVE+probe Ql (Unsp spec) Detected Abnormal NOT DETECTED [facility] Comment on above: Result Comment: This test is not yet approved or cleared by the [place] FDA. When there are no FDA-approved or cleared tests available, and other criteria are met, FDA can make tests available under an emergency access mechanism called an Emergency Use Authorization (EUA). The EUA for this test is supported by the [place] of Health and Human Service's (HHS's) declaration [...] used). Performed By: #### C VDTBH #### [facility] [address] [place] [address] Chad Jackson COVID-19 PCRon 07-16-2020 SARS-CoV-2 (COVID-19) RNA GENEVIEVE+probe Ql (Unsp spec) Not detected Normal Not Detected [facility] Comment on above: Result Comment: This nucleic acid amplification test was developed and its performance characteristics determined by [employer]. Nucleic acid amplification tests include PCR and [...] assay. Performed By: #### C VDPCR #### [facility] [address] [place] [address] Chad Jackson COVID-19 PCRon 06-02-2020 SARS-CoV-2 (COVID-19) RNA GENEVIEVE+probe Ql (Unsp spec) Not detected Normal Not Detected [facility] Comment on above: Result Comment: This nucleic acid amplification test was developed and its performance characteristics determined by [employer]. Nucleic acid amplification tests include PCR and [...] assay. Performed By: #### C VDPCR #### [facility] [address] [place] [address] Vital Signs Date Time Vital Sign Value Performing Clinician Faci lity 01-07-2025 10:230400 Body height 176.5 cm Janice Kirby MD Work Phone: [facility] 01-07-2025 10:23-0400 Body mass index (BMI) [Ratio] 24.02 kg/m2 Janice Kirby MD Work Phone: [facility] 01-07-2025 10:23-0400 Body weight 74.84 kg Janice Kirby MD Work Phone: [facility] 01-07-2025 10:23-0400 Diastolic blood pressure 77 mm[Hg] Janice Kirby MD Work Phone: [facility] 01-07-2025 10:23-0400 Heart rate 121 /min Janice Kirby MD Work Phone: [facility] 01-07-2025 10:23-0400 Systolic blood pressure 129 mm[Hg] Janice Kirby MD Work Phone: [facility] 10-23-2024 09:57-0500 Body height 177.8 cm Brittney Song MD Work Phone: [facility] 10-23-2024 09:57-0500 Body mass index (BMI) [Ratio] 24.25 kg/m2 Brittney Song MD Work Phone: [facility] 10-23-2024 09:57-0500 Body weight 76.66 kg Brittney Song MD Work Phone: [facility] 10-23-2024 09:57-0500 Diastolic blood pressure 70 mm[Hg] Brittney Song MD Work Phone: [facility] 10-23-2024 09:57-0500 Heart rate 105 /min Brittney Song MD Work Phone: [facility] 10-23-2024 09:57-0500 Respiratory rate 16 /min Brittney Song MD Work Phone: [facility] 10-23-2024 09:57-0500 SaO2% (BldA) [Mass fraction] 96 % Brittney Song MD Work Phone: [facility] 10-23-2024 09:57-0500 Systolic blood pressure 110 mm[Hg] Brittney Song MD Work Phone: [facility] 06-16-2024 10:13-0400 Body height 176.5 cm Brittney Song MD Work Phone: [facility] 06-16-2024 10:13-0400 Diastolic blood pressure 74 mm[Hg] Brittney Song MD Work Phone: [facility] 06-16-2024 10:13-0400 Heart rate 98 /min Brittney Song MD Work Phone: [facility] 06-16-2024 10:13-0400 Respiratory rate 18 /min Brittney Song MD Work Phone: [facility] 06-16-2024 10:13-0400 Systolic blood pressure 120 mm[Hg] [...] 10-23-2024 Bamboo niranjan Song MD Work Phone: [facility] Start: 10-23-2024 End: 10-23-2024 Bamshiva Song MD Work Phone: [facility] Start: 10-23-2024 End: 10-23-2024 Office outpatient visit 25 minutes Brittney Song MD Work Phone: [facility] Comment on above: Type 2 diabetes aron itus with hyperglycemia, with long-term current use of insulin ([facility]) (Primary Dx); Weight gain; Vitamin D deficiency; Encounter for dietary consultation Start: 10-23-2024 End: 10-23-2024 ambulatory BRITTNEY SONG Not Available Start: 06-16-2024 End: 06-16-2024 Rlboankit Song MD Work Phone: [facility] Start: 06-16-2024 End: 06-16-2024 Bamboo flowsheet Brittney Song MD Work Phone: [facility] Start: 06-16-2024 End: 06-16-2024 Office outpatient visit 25 minutes Brittney Song MD Work Phone: [facility] Comment on above: Type 2 diabetes aron itus with hyperglycemia, with long-term current use of insulin ([facility]) (Primary Dx); Weight gain; Vitamin D deficiency; [...] Visit [facility] [address] [facility] [address] [place] [id number] Janice Kirby MD [address] [facility] [address] [place] [address] [facility] Start: 01-23-2025 End: 01-23-2025 Patient encounter procedure 01/23/2025 10:10 AM EDT Office Visit [facility] [address] [place] [id number] Brittney Song MD [address] [place] [address] [facility] Start: 01-07-2025 End: 01-07-2025 Patient encounter procedure 01/07/2025 10:20 AM EDT Office Visit [facility] [address] [place] [address] [place] [address] Janice Kirby MD [address] [place] [address] [place] [address] [facility] Start: 10-23-2024 End: 10-23-2024 Patient encounter procedure 10/23/2024 9:50 AM EST Office Visit [facility] [address] [place] [address] Brittney Song MD [address] [place] [address] [facility] Comment on above: Arrived Start: 10-20-2024 End: 10-20-2024 Patient encounter procedure 10/20/2024 10:00 AM EST Office Visit [facility] [address] [place] [address] Brittney Song MD [address] [place] [address] [facility] Start: 06-16-2024 End: 06-16-2024 Patient encounter procedure 06/16/2024 10:50 AM EDT Office Visit [facility] [address] [place] [address] Brittney Song MD [address] [place] [address] Type 2 diabetes mellitus with hyperglycemia, with long-term current use of insulin ([facility]) [facility] Comment on above: Type 2 diabetes aron itus with hyperglycemia, with long-term current use of insulin ([facility]) Payers Date Payer Category Payer Medicaid (Managed Care) [employer] [id number] 2002 Unknown [id number] 2002 Unknown [id number] 2002 Unknown [id number] 2002 Unknown [id number] 1259 2002 Unknown [id number] 1259 2002 Unknown [id number] 1259 2002 Unknown [id number] 1259 1959 Unknown [id number] Social History Date Type Detail Facility Start: 12-26-2023 Tobacco smoking stat [facility] Never smoked tobacco [facility] Start: 12-26-2023 [...] Age of Onset Diabetes Mother Hypertension Mother Mccormick's disease Maternal Grandmother No Known Problems Paternal Grandmother No Known Problems Paternal Grandfather Active Ambulatory Problems Diagnosis Date Noted Right ear impacted cerumen 12/31/2023 Perforation of right tympanic membrane 12/31/2023 Major depressive disorder, single episode, unspecified ([facility]) 01/07/2025 Resolved Ambulatory Problems Diagnosis Date Noted No Resolved Ambulatory Problems Past Medical History: Diagnosis Date ADHD (attention deficit hyperactivity disorder) ([facility]) Anxiety Asthma Diabetes 1.5, managed as type 2 (HCC) ([facility]) IBS (irritable bowel syndrome) terminal supervisor (current) use of insulin ([facility] Panic attack ([facility]) PTSD (post-traumatic stress disorder) ([facility]) Tympanic membrane perforation, right Vitamin D deficiency, [...] Metrix Meter) w/Device kit USE DIRECTED to [facility] BLOOD SUGAR TWICE DAILY cetirizine (ZYRTEC) 10 [...] Diagnosis Date ADHD (attention deficit hyperactivity disorder) ([facility]/HCC) Anxiety Asthma ([facility]/HCC) Diabetes 1.5, managed as type 2 (HCC) ([facility]) IBS (irritable bowel syndrome) skilled nursing (current) use of insulin ([facility]/HCC) Panic attack ([facility]/HCC) PTSD (post-traumatic stress disorder) ([facility]) Tympanic membrane perforation, right Vitamin D deficiency, [...] hyperglycemia, with long-term current use of insulin ([facility]) - POCT glycosylated hemoglobin (Hb A1C) docked [...] Metrix Meter) w/Device kit USE DIRECTED to [facility] BLOOD SUGAR TWICE DAILY cetirizine (ZYRTEC) 10 [...] Diagnosis Date ADHD (attention deficit hyperactivity disorder) ([facility]) Anxiety Asthma ([facility]) Diabetes 1.5, managed as type 2 ([facility]) ([facility]) IBS (irritable bowel syndrome) skilled nursing (current) use of insulin ([facility]) Panic attack ([facility]) PTSD (post-traumatic stress disorder) ([facility]) Tympanic membrane perforation, right Vitamin D deficiency, [...] hyperglycemia, with long-term current use of insulin ([facility]) - POCT glucose manually resulted - POCT glycosylated hemoglobin (Hb A1C) docked device We will continue with Lantus 30 units, metformin 1000 twice a day, Jardiance 10 mg Weight gain Vitamin D deficiency Encounter for dietary consultation Diet and exercise reviewed with the patient Follow up in about 4 months (around 10/17/2024). documented in this encounter [facility] Evaluation note Note Date & Type Note Facility Evaluation note Diagnosis Type 2 diabetes mellitus with hyperglycemia, with long-term current use of insulin ([facility])- Primary Weight gain Other symptoms concerning nutrition, metabolism, and development Vitamin D deficiency Encounter for dietary consultation documented in this encounter [facility] Evaluation note Note Date & Type Note Facility Evaluation note Diagnosis Type 2 diabetes mellitus with hyperglycemia, with long-term current use of insulin ([facility])- Primary Weight gain Other symptoms concerning nutrition, metabolism, and development Vitamin D deficiency Encounter for dietary consultation documented in this encounter [facility] Evaluation note Note Date & Type Note Facility Evaluation note Diagnosis Perforation of right tympanic membrane- Primary documented in this encounter [facility] Summary Purpose Family History No Family History Records FoundNo Family History Records Found Advance Directives No Advanced Directives Records FoundNo Advanced Directives Records Found Additional Source Comments (unrecognized sect ion and content) No Status Records FoundNo Status Records Found INFORMATION SOURCE (unrecogn ized section and content) DATE CREATED AUTHOR 03/22/2021 [facility] DATE CREATED AUTHOR AUTHOR'S ORGANIZ ATION 01/29/2025 [facility] Reason for Visit (unrecogniz ed section and content) Reason Comments Diabetes Follow-up Reason Comments Diabetes Reason Comments Cerumen Impaction 1 year check ears Care Teams (unrecognized sec tion and content) Wireless Store Manager Relationship Specialty Start Date End Date Edenilson Shelley MD [address] [place] [facility] [address] PCP - General Family Medicine 12/31/23 Wireless Store Manager Relationship Specialty Start Date End Date Edenilson Shelley MD [address] [place] [facility] [address] PCP - General Family Medicine 12/31/23 Wireless Store Manager Relationship Specialty Start Date End Date Edenilson Shelley MD [address] [place] [facility] [address] PCP - General Family Medicine 12/31/23 Wireless Store Manager Relationship Specialty Start Date End Date Edenilson Shelley MD [address] [place] [facility] [address] PCP - General Family Medicine 12/31/23 Wireless Store Manager Relationship Specialty Start Date End Date Edenilson Shelley MD [address] [place] [facility] [address] PCP - General Family Medicine 01/07/25 Wireless Store Manager Relationship Specialty Start Date End Date Edenilson Shelley MD [address] [place] [facility] [address] PCP - General Family Medicine 01/07/25 FOR [...] BE BASED ON THE PRIMARY CLINICAL RECORDS. [facility] [employer] [facility]. provides no warranty or guarantee of the accuracy or completeness of information in this document.
[2025-02-05 09:17] LABS: Creatinine Urine Random 52.28 mg/dL (20.00-300.00); Microalbumin Urine Random <1.3 mg/dL (<=30.0)
[2025-02-05 09:20] LABS: Albumin Level 3.9 g/dL (3.4-5.0); Anion Gap 14.2; BUN Creatinine Ratio 32.2; Calcium 9.3 mg/dL (8.5-10.1); Carbon Dioxide 28.3 mmol/L (21.0-32.0); Chloride 103 mmol/L (98-107); Chol HDL Ratio 3.6; Cholesterol 192 mg/dL (<=200); Estimated GFR (African America >60 (>=60 mL/min/1.73m^2); Estimated GFR (Non-African Ame >60 (>=60 mL/min/1.73m^2); Glucose 207 mg/dL (74-106); HDL Cholesterol 53 mg/dL (40-60); LDL Cholesterol Calculated 116.4 mg/dL; Phosphorus 3.3 mg/dL (2.6-4.7); Potassium 4.5 mmol/L (3.5-5.1); Sodium 141 mmol/L (136-145); Triglycerides 113 mg/dL (<=150); VLDL CHOLESTEROL 22.6 mg/dL
[2025-02-06 04:07] LABS: C-Peptide, Serum 1.1 ng/mL (1.1-4.4)
== END 2025-02-05 08:39 | disposition home or self-care (01) ==
LOC: LAB 08:38
PROVIDERS: PCP Family Medicine; Visit Provider Internal Medicine
DX: E11.65 Type 2 diabetes mellitus with hyperglycemia (principal); Z79.4 Long term (current) use of insulin
CPT/HCPCS: 36415; 80061; 80069; 82043; 82306; 82570; 84681